=== PATIENT | male | born 1945 | race Caucasian/White ===

== ENCOUNTER 2022-09-19 07:32 | Day surgery (SDC) | payer OTHER ==
[~2022-09-19] VITALS: Ht 175.3 cm; Wt 68.0 kg
[~2022-09-19 07:32] MED LIST: CEFAZOLIN SOD 2 GM in D5W 50 ML IV ONE
[2022-09-19] MEDS ORDERED: ROCURONIUM BROMIDE 10 MG/ML (ZEMURON) ONE (10:15)
[2022-09-19] MEDS ORDERED: NS IRRIG SOLN 1000 ML IR ONE (10:15)
[2022-09-19] MEDS ORDERED: MEPERIDINE HCL/PF 50 MG/ML VIAL ONE (10:15)
[2022-09-19] MEDS ORDERED: BUPIVACAINE /PF 0.25% 30 ML VIAL INJ ONE (10:15)
[2022-09-19] MEDS ORDERED: SUGAMMADEX SODIUM 200 MG/2 ML VIAL IV ONE (10:15)
[2022-09-19] MEDS ORDERED: DEXAMETHASONE SOD PHOSPHATE 4 MG/ML VIAL ONE (10:15)
[2022-09-19] MEDS ORDERED: LR 1,000 ML IV.SOLN IV ONE (10:15)
[2022-09-19] MEDS ORDERED: SEVOFLURANE 15 MIN GAS INH ONE (10:15)
[2022-09-19] MEDS ORDERED: ONDANSETRON HCL 4 MG/2 ML VIAL ONE (10:15)
[2022-09-19] MEDS ORDERED: fentaNYL CITRATE/PF 100 MCG/2 ML AMP ONE (10:15)
[2022-09-19] MEDS ORDERED: SUCCINYLCHOLINE CHLORIDE 20 MG/ML(QUELICIN) ONE (10:15)
[2022-09-19] MEDS ORDERED: PROPOFOL 200MG/ 20ML VIAL (DIPRIVAN) IV ONE (10:15)
[2022-09-19] MEDS ORDERED: KETOROLAC TROMETHAMINE 30 MG VIAL IVP PRN (11:15)
[2022-09-19] MEDS ORDERED: ONDANSETRON HCL 4 MG/2 ML VIAL IVP PRN (11:15)
[2022-09-19] MEDS ORDERED: MEPERIDINE HCL/PF 25 MG/ML DISP.SYRIN IVP PRN (11:15)
[2022-09-19] MEDS ORDERED: LR 1,000 ML IV SCH (11:15)
[2022-09-19] MEDS ORDERED: HYDROmorphone 1 MG/ML INJ. CARTRIDGE IVP PRN (11:15)
[2022-09-19] MEDS ORDERED: METOCLOPRAMIDE HCL 10 MG/2 ML VIAL IVP PRN (11:15)
[2022-09-19 15:37] VITALS: BP_SYST 143
== END 2022-09-19 15:30 | disposition home or self-care (01) ==
LOC: SDS 07:32
PROVIDERS: ATTEND Surgery
DX: K40.20 Bilateral inguinal hernia, without obstruction or gangrene, not specified as recurrent (principal); K21.9 Gastro-esophageal reflux disease without esophagitis; E78.5 Hyperlipidemia, unspecified; I10 Essential (primary) hypertension; Z79.899 Other long term (current) drug therapy; Z20.822 Contact with and (suspected) exposure to COVID-19
CPT/HCPCS: 49650; 36415; 87426; J3490 ×2; J0690; J1100; J2405; J2704; J0330; J3010; J2175; J7060; J7120; C1727; C1781; S2900